=== PATIENT | female | born 1960 | race Caucasian/White ===

== ENCOUNTER 2016-12-30 17:41 | Emergency (ER) | payer OTHER ==
[~2016-12-30 17:41] MED LIST: ASPIRIN PO; MOBIC15 MG PO; NAPROXEN PO
== END 2016-12-30 18:08 | disposition home or self-care (01) ==
LOC: SED 17:41
DX: S80.11XA Contusion of right lower leg, initial encounter (principal); Z88.5 Allergy status to narcotic agent; Z79.899 Other long term (current) drug therapy; Z23 Encounter for immunization; W22.8XXA Striking against or struck by other objects, initial encounter; Y92.69 Other specified industrial and construction area as the place of occurrence of the external cause
CPT/HCPCS: 29540; 90471; 90715; 99283